=== PATIENT | male | born 1995 | race Caucasian/White ===

== ENCOUNTER 2016-08-27 04:56 | Emergency (ER) | payer SELFPAY ==
[~2016-08-27] VITALS: Ht 170.2 cm; Wt 81.0 kg
[~2016-08-27 04:56] MED LIST: Z.0.NO CURRENT MEDS
[2016-08-27 04:58] VITALS: BP 141/86; PULSE 74; RESP 15; TEMP 97.8; O2SAT 100
[2016-08-27] MEDS ORDERED: PERI0.126 SWISH-SPIT (05:10)
[2016-08-27] MEDS ORDERED: CLIN1CAP5 PO (05:10)
--- NOTE | 2016-08-27 05:10 | PD ---
HPI Chief Complaint: Oral / Dental Pain or Problem Time Seen by Provider: 05:08 Travel History International Travel<30 days: No Contact w/Intl Traveler<30days: No Traveled to known affect area: No History of Present Illness HPI 21-year-old male with history of generalized poor dentition presents to emergency department for evaluation of drainage from his teeth and bumps on his tongue. Patient states he notices this morning when he woke up and caused him to be concerned. Denies any new injuries. No fever chills. No significant pain. Patient has not sought dental evaluation and states that his teeth have been bad for an unknown amount of time. PFSH Past Medical History Medical History: Denies Significant Hx ADHD: No Cancer: No Diabetes: No Psychiatric: No (BIPOLAR) Migraines: Yes Seizures: No Thyroid Disease: No Ulcer: No Past Surgical History Appendectomy: No Cholecystectomy: No Social History Alcohol Use: Yes (OCCASIONAL FOURLOCAL) Tobacco Use: Yes (1-2 CIGS A DAY) Substance Use: Yes (2MONTHS) Allergies-Medications (Allergen,Severity, Reaction): Coded Allergies: Penicillin (Verified Allergy, Unknown, 08/27/16) Reported Meds & Prescriptions Reported Meds & Active Scripts Active Peridex Liq (Chlorhexidine Gluconate (Mouth) Liq) 0.12% Soln 15 Ml SWISH-SPIT BID Clindamycin (Clindamycin HCl) 150 Mg Cap 300 Mg PO Q6H 10 Days Review of Systems Except as stated in HPI: all other systems reviewed are Neg Physical Exam Narrative GENERAL: Well-nourished, well-developed male patient ambulatory and in no acute distress SKIN: Focused skin assessment warm/dry. HEAD: Normocephalic. EYES: No scleral icterus. No injection or drainage. ENT: Mucosa pink and moist. No erythema or exudates. No uvular edema. No uvular , palatal, or tonsillar deviation. Airway patent. Nasal turbinates appear normal without nasal blood, purulent drainage or septal hematoma. DENTAL: Generalized poor dentition. Several teeth are decayed completely to the gingiva. There is no obvious drainage or discharge. There is gingival erythema and edema. No apparent abscess identified. I do not see any abnormal bumps on the patient's tongue. No malocclusion. NECK: Supple, trachea midline. No JVD or lymphadenopathy. CARDIOVASCULAR: Regular rate and rhythm without murmurs, gallops, or rubs. RESPIRATORY: Breath sounds equal bilaterally. No accessory muscle use. GASTROINTESTINAL: Abdomen soft, non-tender, nondistended. MUSCULOSKELETAL: No cyanosis, or edema. BACK: Nontender without obvious deformity. No CVA tenderness. Data Data Last Documented VS Vital Signs Date Time Temp Pulse Resp B/P Pulse Ox O2 Delivery O2 Flow Rate FiO2 08/27/16 04:58 97.8 74 15 141/86 100 Room Air Orders Clindamycin (Cleocin) (08/27/16 05:15) MDM Medical Decision Making Medical Screen Exam Complete: Yes Emergency Medical Condition: Yes Medical Record Reviewed: Yes Differential Diagnosis Gingivitis versus periodontal disease versus pulpitis versus dental caries Narrative Course 21 year-old male presents to emergency department for evaluation. Patient does have generalized poor dentition with several decayed teeth down to the gingiva and associated gingival erythema and edema. Patient will be started on oral antibiotics and Peridex oral rinse. He is encouraged to seek dental evaluation as soon as possible. He agrees to return immediately with any acute worsening of symptoms. Diagnosis Primary Impression: Periodontal disease, unspecified Additional Impressions: Gingivitis Dental caries Referrals: Dentist Primary Care Physician Patient Instructions: Dental Caries (ED), General Instructions Additional Instructions: It is important that you seek dental evaluation Follow-up the primary care provider Return immediately with any acute worsening of symptoms Med/Other Pt SpecificInfo: Prescription(s) given Scripts Chlorhexidine Gluconate (Mouth) Liq (Peridex Liq)0.12% Soln15 Ml SWISH-SPIT BID #473 ML Ref 0 Prov:Neelam Quinonez 08/27/16 Clindamycin 150 Mg [id number] Mg PO Q6H 10 Days Ref 0 Prov:Neelam Quinonez 08/27/16 Disposition: 01 DISCHARGE HOME Condition: Stable Neelam Quinonez August 27, 2016 05:10
[2016-08-27] MEDS ORDERED: CLINDAMYCIN 150 MG CAP PO ONE (05:15)
== END 2016-08-27 05:46 | disposition home or self-care (01) ==
LOC: NEPK 04:56
DX: K05.6 Periodontal disease, unspecified (principal); K05.10 Chronic gingivitis, plaque induced; K02.9 Dental caries, unspecified; Z72.0 Tobacco use
CPT/HCPCS: 99282